=== PATIENT | male | born 1970 | race Caucasian/White ===

== ENCOUNTER → 2018-10-12 | Day surgery (SDC) | payer BC ==
[~2018-10-12] MED LIST: GLUCAGON FOR INJ 1 MG VIAL ONE; HYOSCYAMINE 0.125 MG TAB ONE; LIDOCAINE HCL 2% LOCAL INJ 5 ML SDV VIAL INJ ONE; MIDAZOLAM HCL 2 MG/2 ML VIAL ONE; PROPOFOL IV EMULSION 10 MG/ML 20 ML VIAL ONE
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
--- OUTSIDE RECORDS SUMMARY | 2018-10-12 08:25 | XMS REPORT | Encounter Summary ---
Author Organization Unknown Address [address] [place] [address] Phone [phone] Reason for Visit Medical Complaint Instructions 1. Acute tonsillitis tonsillitis: care instructions amoxicillin 500 mg capsule culture, respiratory 2. Sore throat symptom rapid strep group A, throat sore throat: care instructions Discussion Note Pt is aaox3 and in NAD; verbalizes understanding of all instructions and has no further questions at this time Plan of Care Patient Instructions Drink plenty of fluids, and eat soft, bland foods. Change toothbrush 24hrs after starting abx. Take medications as prescribed and discussed; follow up with your PCP within 2-3 days or sooner should symptoms worsen. Reminders Provider Appointments None recorded. Lab Rapid Strep Group a, Throat 04/02/2017 [facility] Culture, Respiratory 04/02/2017 [facility] Referral None recorded. Procedures None recorded. Surgeries None recorded. Imaging None recorded. Medications Name Start Date amoxicillin 500 mg capsule Take 1 capsule twice a day by oral route with meals for 10 days. diclofenac 3 % topical gel doxepin 5 % topical cream fluticasone 50 mcg/actuation nasal spray,suspension [place] 2 spray in each nostril by intranasal route once daily as needed lidocaine 5 % topical ointment lidocaine 5 % topical patch meloxicam 15 mg tablet meloxicam 7.5 mg tablet Ortho D 3,775 unit-1 mg capsule Tessalon Perle 100 mg capsule Take 1 capsule (100 mg) by oral route 3 times per day as needed for cough Zithromax Z-Schuyler 250 mg tablet Take 2 tablets (500 mg) by oral route once daily for 1 day then 1 tablet (250 mg) by oral route once daily for 4 days Medications Administered None recorded. Vitals Height Weight BMI Blood Pressure 6 ft 1 in 215 lbs 28.4 kg/m2 110/80 mm[Hg] Lab Results Date Name Specimen Result Interpretation Description Value Range Status Address Rapid Strep Group a, Throat Result negative [facility]: [address] [place] [address] Swab Location Left and Right tonsillar pillars [facility]: [facility] Allergies Code Code System Name Reaction Severity Status Onset NKDA Problems Name Status Onset Date Source Acute Sinusitis Active Encounter Acute Bronchitis Active Encounter Dyspnea Active Encounter Elevated Blood-pressure Reading without Diagnosis of Hypertension Active Encounter Procedures None recorded. Vaccine List None recorded. Social History Smoking Status Never Smoker Past Encounters 04/02/2017 Acute Tonsillitis; Sore Throat Symptom [facility]: [address] [place] [address], Ph. History of Present Illness Throat-Oral Complaint Reported By: Patient HPI: Location: throat. Quality: sore throat. Severity: mild. Duration: 21 days. Onset/Timing: sudden. Context: no sick contacts, no foreign travel, non-smoker. Associated Symptoms: no fever, no headache, no body aches, no sputum production, no shortness of breath, no wheezing, no change in number of pillows needed to sleep at night, no sweats, no significant weight gain, no significant weight loss, no morning cough, no vomiting, no diarrhea, no rash, no nausea, sore throat Review of Systems:ROS as noted in the HPI Review of Systems Basic Reported By: Patient Physical Exam Adult Basic, Adult Female Complete, Adult Male Complete, 14-21 Yr Females Reported By: Patient Constitutional: General Appearance: healthy-appearing, well-nourished, well-developed. Level of Distress: NAD. Ambulation: ambulating normally Psychiatric: Mental Status: active and alert. Orientation: to time, to place, to person Yso-Utic-Ltxww-Throat: Ears: no lesions on external ear, no outer ear tenderness, EACs clear, TMs clear. Hearing: no hearing loss. Nose: no lesions on external nose, nares patent, no septal deviation, nasal passages clear, no sinus tenderness, no nasal discharge. Lips, Teeth, and Gums: no mouth or lip ulcers, no bleeding gums, normal dentition. Oropharynx: moist mucous membranes, no exudates, erythema, tonsils enlarged 2+ Neck: Neck: FROM. Lymph Nodes: no supraclavicular LAD, anterior cervical LAD. Thyroid: no enlargement, non-tender Lungs: Respiratory effort: no dyspnea, no tachypnea. Auscultation: breath sounds normal, clear to auscultation, no wheezing, no rales/crackles, no rhonchi, no retractions Cardiovascular: Heart Auscultation: RRR, no murmurs. Pulses including femoral / pedal: normal throughout Neurologic: Gait and Station: normal gait, normal station. Reflexes: DTRs 2+ bilaterally throughout Skin: Inspection and palpation: no rash, no lesions, no ulcer, no abnormal nevi, no induration, no nodules, good turgor, no jaundice. Nails: normal
--- OUTSIDE RECORDS SUMMARY | 2018-10-12 08:26 | XMS REPORT ---
Author Author [facility] Address Unknown Phone Unavailable Care Team Providers Care Integrated Marketing Manager Name Role Phone Unavailable Unavailable Problems This patient has no known problems. Allergies, Adverse Reactions, Alerts This patient has no known allergies or adverse reactions. Medications This patient has no known medications. Encounters Start Date/Time End Date/Time Encounter Type Admission Type Attending Clinicians [facility] Facility Care Department Encounter ID 2018-09-06 15:05:00 2018-09-06 15:05:00 Outpatient [facility] [id number]
--- OUTSIDE RECORDS SUMMARY | 2018-10-12 08:26 | XMS REPORT | Summary of Care ---
Author Author ANURADHA GARCIA M.D. Organization Unknown Address [facility] Phone Unavailable Care Team Providers Care Entertainment Manager Name Role Phone ANURADHA GARCIA M.D. 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 Quantity: 30 ANURADHA GARCIA M.D. * Start : 25-Jul-2016 Active Allergies and Adverse Reactions Name Dates Details No Known Drug Allergies (Allergy) Status: Active Past Medical History Name Dates Details History of No significant past medical history Status: Resolved Procedures Procedure Dates Details History Of Prior Surgery Completed Immunization Name Dates Details Immunizations not documented Social History Name Dates Details - Status: Name Dates Details Never smoker Vital Signs Date Test Result Details No Known Vitals to report Results Date Description Value Details Results not documented Plan of Care Name Dates Details Planned Observations Planned Goals not documented Interventions Provided Plan* Completed at Today's Appointment: * Injection * Patient Education/Instructions: * Patient Education Provided * Reassurance * Counseling Provided. * MRI report reviewed and finding discussed with patient and family. * Physical Activity/ Sports Clearance:. * Weightbearing status:. * NSAIDS and ICE application for continued pain and swelling. * Apply Ice as Instructed * Orders: * Physical Therapy * Medications:. * Follow Up: * Return to the clinic in 4 week(s) or as needed. * Patient seen and examined by Physician. * Xray's reviewed with Physician Instructions Name Dates Details Instructions not documented Encounters Appointment; ANURADHA GARCIA M.D. Encounter Diagnosis: Problem not documented On: 15-Aug-2016 16:00
--- OUTSIDE RECORDS SUMMARY | 2018-10-12 08:26 | XMS REPORT ---
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
--- OUTSIDE RECORDS SUMMARY | 2018-10-12 08:26 | XMS REPORT | Summary of Care ---
Author Author [facility] Address Unknown Phone Unavailable Encounter HQ Encntr_chiara(FIN) [id number] Date(s): 08/24/16 - 09/22/16 [facility] Discharge Disposition: Home or Self Care Attending Physician: Arik Du MD Vital Signs No data available for this section Problem List No data available for this section Allergies, Adverse Reactions, Alerts No data available for this section Medications No data available for this section Results No data available for this section Immunizations No data available for this section Procedures No data available for this section Social History No data available for this section Assessment and Plan No data available for this section
--- OUTSIDE RECORDS SUMMARY | 2018-10-12 08:26 | XMS REPORT ---
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 Info Not Available Non Drug Allergy Problems Problem Type Condition Code Onset Dates Condition Status Assessment Left anterior shoulder pain M25.512 Active Assessment Disorder of left rotator cuff M67.912 Active Assessment BMI 28.0-28.9,adult Z68.28 Active Medications Medication Code System Code Instructions Start Date End Date Status Dosage [facility] [address]-59 15 MG Orally Once a day June 21, 2016 July 21, 2016 Active 1 tablet Vital Signs Date/Time: June 21, 2016 BMI 28.10 Index Weight 213 lbs Height 73 in Cardiac Monitoring Heart Rate 84 /min Blood Pressure Diastolic 80 mm Hg Blood Pressure Systolic 120 mm Hg Results No Known Results Summary Purpose [employer] Submission
--- OUTSIDE RECORDS SUMMARY | 2018-10-12 08:26 | XMS REPORT ---
Author Author Angela Stuart [facility] [employer] Address Unknown Phone Unavailable Care Team Providers Care Stage Electrician Helper Name Role Phone Angela Stuart CP Unavailable Allergies, Adverse Reactions, Alerts Substance Reaction Event Type N.K.D.A. Info Not Available Non Drug Allergy Encounters Encounter Location Date change RX [facility] July 16, 2013 HOME MAKER/PHYSICAL/FBW [facility] July 15, 2013 Problems Problem Type Condition ICD-9 Code Onset Dates Condition Status Assessment Genital warts 078.11 Active Assessment Screen for STD (sexually transmitted disease) V74.5 Active Assessment Routine general medical examination at health care facility V70.0 Active Medications Medication Code System Code Instructions Start Date End Date Status Dosage Podofilox MEDISPAN [address]-71 0.5 % Externally Twice a day for 3 days, then 4 days of no treatment, may repeat for up to 4 cycles July 15, 2013 Oct 13, 2013 Active 1 application to affected area Social History Social History Element Qualifiers Date Reported Flu Vaccine: . declines July 15, 2013 children . 1 July 15, 2013 Tobacco Use: . Are you a: never smoker July 15, 2013 Marital Status: . Johana July 15, 2013 Do you drink alcohol? . Status: Yes, Type: Beer, How often? 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 Metabolic Panel (14) Calcium, Serum(-8.7-10.2 mg/dL) 9.1 Protein, Total, Serum(-6.0-8.5 g/dL) 7.7 Carbon Dioxide, Total(-19-28 mmol/L) 23 Globulin, Total(-1.5-4.5 g/dL) 3.4 Glucose, Serum(-65-99 mg/dL) 91 Albumin, Serum(-3.5-5.5 g/dL) 4.3 Bilirubin, Total(-0.0-1.2 mg/dL) 0.4 A/G Ratio(-1.1-2.5 ) 1.3 AST (SGOT)(-0-40 IU/L) 16 eGFR If NonAfricn Am(- >59 mL/min/1.73) 105 Alkaline Phosphatase, S(-39-117 IU/L) 108 eGFR If Africn Am(- >59 mL/min/1.73) 122 BUN(-6-24 mg/dL) 9 ALT (SGPT)(-0-44 IU/L) 21 Creatinine, Serum(-0.76-1.27 mg/dL) 0.85 Potassium, Serum(-3.5-5.2 mmol/L) 4.9 Chloride, Serum(-97-108 mmol/L) 99 BUN/Creatinine Ratio(-9-20 ) 11 Sodium, Serum(-134-144 mmol/L) 138 Lipid Panel Cholesterol, Total(-100-199 mg/dL) 195 Triglycerides(-0-149 mg/dL) 146 HDL Cholesterol(->39 mg/dL) 42 VLDL Cholesterol Carlos(-5-40 mg/dL) 29 LDL Cholesterol Calc(-0-99 mg/dL) 124 HSV 1 and 2 IgM Abs, Indirect HSV 1 IgM Antibodies(-<1:10 titer) <1:10 HSV 2 IgM Antibodies(-<1:10 titer) <1:10 HSV Type 1-Specific Ab, IgG HSV 1 IgG, Type Spec(-0.00-0.90 index) 5.28 Urinalysis, Routine Urobilinogen,Semi-Qn(-0.0-1.9 mg/dL) 0.2 Bilirubin(-Negative ) Negative Urine-Color(-Yellow ) Yellow Appearance(-Clear ) Clear WBC Esterase(-Negative ) Negative Protein(-Negative/Trace ) Negative Glucose(-Negative ) Negative Ketones(-Negative ) Negative Specific [place](-1.005-1.030 ) 1.013 Occult Blood(-Negative ) Negative Microscopic Examination(- ) Comment pH(-5.0-7.5 ) 7.0 Nitrite, Urine(-Negative ) Negative Testosterone, Serum Testosterone, Serum(-348-1197 ng/dL) 401 Comment:(- ) Comment Chest 2 views- Xray EKG W/INTERP/ELECTR HSV Type 2-Specific Ab, IgG HSV 2 IgG, Type Spec(-0.00-0.90 index) <0.91 RPR RPR(-Non Reactive ) Non Reactive Prostate-Specific Ag, Serum Prostate Specific Ag, Serum(-0.0-4.0 ng/mL) 1.8 TSH TSH(-0.450-4.500 uIU/mL) 3.620 CBC With Differential/Platelet Hemoglobin(-12.6-17.7 g/dL) 15.8 RBC(-4.14-5.80 x10E6/uL) 5.59 MCV(-79-97 fL) 85 Hematocrit(-37.5-51.0 %) 47.5 MCHC(-31.5-35.7 g/dL) 33.3 MCH(-26.6-33.0 pg) 28.3 Platelets(-155-379 x10E3/uL) 307 RDW(-12.3-15.4 %) 13.2 Neutrophils(-40-74 %) 69 Monocytes(-4-12 %) 8 Lymphs(-14-46 %) 22 Basos(-0-3 %) 0 Eos(-0-5 %) 1 Immature Grans (Abs)(-0.0-0.1 x10E3/uL) 0.0 Lymphs (Absolute)(-0.7-3.1 x10E3/uL) 1.2 WBC(-3.4-10.8 x10E3/uL) 5.6 Immature Granulocytes(-0-2 %) 0 Neutrophils (Absolute)(-1.4-7.0 x10E3/uL) 3.8 Baso (Absolute)(-0.0-0.2 x10E3/uL) 0.0 Monocytes(Absolute)(-0.1-0.9 x10E3/uL) 0.4 Eos (Absolute)(-0.0-0.4 x10E3/uL) 0.1 Summary Purpose [employer]ClinicalWorks Submission
--- OUTSIDE RECORDS SUMMARY | 2018-10-12 08:26 | XMS REPORT ---
Author Author Eder Gil Organization [employer] Address Unknown Phone Unavailable Care Team Providers Care Software Quality Manager Name Role Phone Eder Gil CP Unavailable Allergies, Adverse Reactions, Alerts Substance Reaction Event Type N.K.D.A. Info Not Available Non Drug Allergy Problems Problem Type Condition Code Onset Dates Condition Status Assessment Encounter to discuss test results Z71.2 Active Problem Hyperlipidemia, unspecified hyperlipidemia type E78.5 Active Assessment Hyperlipidemia, unspecified hyperlipidemia type E78.5 Active Assessment SOB (shortness of breath) R06.02 Active Assessment Elevated LFTs R94.5 Active Medications No Known Medications Vital Signs Date/Time: September 10, 2018 BMI 29.15 Index Weight 221 lbs Height 73 in Cardiac Monitoring Heart Rate 82 /min Blood Pressure Diastolic 74 mm Hg Blood Pressure Systolic 118 mm Hg Results No Known Results Summary Purpose [employer] Submission
--- OUTSIDE RECORDS SUMMARY | 2018-10-12 08:26 | XMS REPORT ---
Author Author Angela Stuart Organization [employer] Address Unknown Phone Unavailable Care Team Providers Care Supervisor Lamp Shades Name Role Phone Angela Stuart Unavailable Encounters Encounter Location Date change RX [facility] July 16, 2013 Problems Problem Type Condition ICD-9 Code Onset Dates Condition Status Assessment Genital warts 078.11 Active Medications Medication Code System Code Instructions Start Date End Date Status Dosage Podofilox MEDISPAN [address]-94 0.5 % Externally Twice a day for 3 days, then 4 days of no treatment, may repeat for up to 4 cycles July 15, 2013 Oct 13, 2013 Inactive 1 application to affected area Podofilox MEDISPAN [address]-53 0.5 % Externally Twice a day for 3 days, then 4 days of no treatment, may repeat for up to 4 cycles July 16, 2013 Oct 14, 2013 Active 1 drop to affected area to warts Social History Social History Element Qualifiers Date Reported Flu Vaccine: . declines July 15, 2013 children . 1 July 15, 2013 Tobacco Use: . Are you a: never smoker July 15, 2013 Marital Status: . Johana July 15, 2013 Do you drink alcohol? . Status: Yes, Type: Beer, How often? 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
--- OUTSIDE RECORDS SUMMARY | 2018-10-12 08:26 | XMS REPORT ---
Author Author Marcos Laughlin Organization [employer] Address Unknown Phone Unavailable Care Team Providers Care Adult Education Instructor Name Role Phone Marcos Laughlin CP Unavailable Allergies, Adverse Reactions, Alerts Substance Reaction Event Type N.K.D.A. Info Not Available Non Drug Allergy Problems Problem Type Condition Code Onset Dates Condition Status Assessment Routine general medical examination at a health care facility Z00.00 Active Assessment SOB (shortness of breath) R06.02 Active Assessment BMI 29.0-29.9,adult Z68.29 Active Assessment Screening for prostate cancer Z12.5 Active Assessment Screen for colon cancer Z12.11 Active Medications No Known Medications Vital Signs Date/Time: September 04, 2018 BMI 29.29 Index Weight 222 lbs Height 73 in Cardiac Monitoring Heart Rate 61 /min Blood Pressure Diastolic 84 mm Hg Blood Pressure Systolic 124 mm Hg Results No Known Results Summary Purpose [employer] Submission
--- OUTSIDE RECORDS SUMMARY | 2018-10-12 08:26 | XMS REPORT | Summary of Care ---
Author Author [facility] Organization [facility] Address Unknown Phone Unavailable Encounter GALLO Reddy(RANJEET) [id number] Date(s): 09/06/18 - 09/06/18 [facility] [address] [place] [address]- [phone] Discharge Disposition: Home or Self Care Attending Physician: Marcos Laughlin Referring Physician: Marcos Laughlin Vital Signs No data available for this section Problem List No data available for this section Allergies, Adverse Reactions, Alerts No Known Medication Allergies Medications No data available for this section Results Most recent to 1 oldest [Reference Range]: eGFR 99 mL/min/1.73m2 1 *NA* (09/06/18 4:12 PM) POC Creatinine 0.9 mg/dL [0.5-1.4 mg/dL] (09/06/18 4:12 PM) 1Result Comment: The eGFR is calculated using the [...] from the National Kidney Disease Education Program ( NKDEP) which additionally recommends that when the eGFR is used in patients with extremes of body mass index for purposes of drug dosing, the eGFR should be mul tiplied by the estimated BMI. Immunizations Given and Recorded Vaccine Date Status Refusal Reason diphtheria/pertussis, acel/tetanus adult 01/28/17 Given Procedures No data available for this section Social History Social History Type Response Smoking Status Never smoker; Ready to change: No; Exposure to Tobacco Smoke None; Cigarette Smoking Last 365 Days No; Reg Smoking Cessation Counseling No entered on: 01/28/17 Assessment and Plan No data available for this section
--- OUTSIDE RECORDS SUMMARY | 2018-10-12 08:26 | XMS REPORT ---
Author Author Angela Stuart Organization [employer] Address Unknown Phone Unavailable Care Team Providers Care Lingo Cleaner Name Role Phone Angela Stuart CP Unavailable Allergies, Adverse Reactions, Alerts Substance Reaction Event Type N.K.D.A. Info Not Available Non Drug Allergy Encounters Encounter Location Date change RX [facility] July 16, 2013 [place]/PHYSICAL/FBW [facility] July 15, 2013 Follow-Up/BW [facility] July 25, 2013 Problems Problem Type Condition ICD-9 Code Onset Dates Condition Status Assessment Hyperlipidemia 272.4 Active Assessment Right elbow pain 719.42 Active Problem Hyperlipidemia 272.4 Active Assessment Right knee pain 719.46 Active Medications Medication Code System Code Instructions Start Date End Date Status Dosage Podofilox MEDISPAN [address]-70 0.5 % Externally Twice a day for 3 days, then 4 days of no treatment, may repeat for up to 4 cycles July 16, 2013 Oct 14, 2013 Active 1 drop to affected area to [facility] Social History Social History Element Qualifiers Date Reported Flu Vaccine: . declines July 25, 2013 children . 1 July 25, 2013 Tobacco Use: . Are you a: never smoker July 25, 2013 Marital Status: . Johana July 25, 2013 Do you drink alcohol? . Status: Yes, Type: Beer, How often? 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
--- OUTSIDE RECORDS SUMMARY | 2018-10-12 08:26 | XMS REPORT | Encounter Summary ---
Author Organization Unknown Address [address] [place] [address] Phone [phone] Reason for Visit Medical Complaint Instructions 1. Dyspnea on exertion shortness of breath: care instructions 2. Elevated blood pressure elevated blood pressure: care instructions Discussion Note: None recorded. Plan of Care Patient Instructions Elevated Blood Pressure Your blood pressure is elevated today, which is defined as anything at or above 120/80. If you have a history of high blood pressure that it treated with medication(s), it is important to continue taking your medication(s). Do not take decongestants which include Sudafed (Pseudoephedrine) and medications ending in D (for example Mucinex D). Use caution taking steroids and NSAIDs, including Ibuprofen and Naproxen Consider eating healthily, exercising (as approved by your primary care provider), and eating a low salt diet to improve blood pressure Monitor your blood pressure and follow up with your primary care provider Seek immediate medical attention (ER or 911) if severe headache, vision changes, numbness, tingling, dizziness, chest pain, chest pressure, shortness of breath, or any other concerning symptoms occur. If you have any need to contact [facility], including questions or concerns, please contact or Reminders Provider Appointments None recorded. Lab None recorded. Referral None recorded. Procedures None recorded. Surgeries None recorded. Imaging None recorded. Medications Name Start Date meloxicam 7.5 mg tablet Medications Administered None recorded. Vitals Height Weight BMI Blood Pressure 6 ft 1 in 210 lbs 27.7 kg/m2 (1) 132/90 mm[Hg] (2) 134/88 mm[Hg] Lab Results None recorded. Allergies Code Code System Name Reaction Severity Status Onset NKDA Problems None recorded. Procedures None recorded. Vaccine List Vaccine Type Tdap 01/11/2017 Social History Smoking Status Never Smoker Past Encounters 09/03/2018 Dyspnea on Exertion; Elevated Blood Pressure Annalise Diane, HEEL CEMENTER MACHINE-C: [address] [place] [address], Ph. History of Present Illness [id number]-[id number] Reported By: Patient HPI: Quality: ; clear throat. Duration: 6days. Modifying factors: OTC medication. Associated Symptoms: no wheezing, no sore throat, no vomiting, no diarrhea, no rash, no nausea, no fever, no muscle aches, no headache, shortness of breath Notes: patient last physical exam was 20 years ago. Review of Systems:ROS as noted in the HPI Review of Systems Basic Reported By: Patient Physical Exam Adult Basic, Adult Male Complete Reported By: Patient Constitutional: General Appearance: healthy-appearing, well-nourished, well-developed Pjz-Yqgi-Brpre-Throat: Ears: no lesions on external ear, no outer ear tenderness, EACs clear, TMs clear, TM mobility normal. Hearing: no hearing loss. Nose: no lesions on external nose, nares patent, no septal deviation, nasal passages clear, no sinus tenderness, no nasal discharge. Oropharynx: moist mucous membranes, no erythema, no exudates, tonsils not enlarged Neck: Lymph Nodes: no cervical LAD Lungs: Respiratory effort: no dyspnea, no tachypnea, no use of accessory muscles, no intercostal retractions. Auscultation: breath sounds normal, good air movement Cardiovascular: Heart Auscultation: RRR, no murmurs. Pulses including femoral / pedal: ; no edema to extremities
[2018-10-12 12:20] VITALS: BP 134/90
--- NOTE | 2018-10-12 12:46 | Operative Report ---
DATE OF PROCEDURE: 10/12/2018 SURGEON: Chris Little MD PROCEDURE: Colonoscopy and polypectomy. INDICATIONS FOR COLONOSCOPY: Colorectal cancer screening. MEDICATIONS: The patient was done under MAC, please see anesthesiologist's note. PROCEDURE IN DETAIL: With the patient in left lateral decubitus position, flexible fiberoptic Olympus colonoscope was inserted into the rectum with ease and advanced all the way to the cecum. The scope was then withdrawn slowly, mucosa overlying the cecum, ascending colon, transverse colon appeared to be within normal limits. Two minute polyps were removed per the cold biopsy forceps from the descending colon. Diverticular disease was noted in the distal descending and the sigmoid colon. One focal diverticulitis was noted in the sigmoid colon. One polyp was hot biopsied from the proximal rectum. The scope was then retroflexed into the distal rectum. Small internal hemorrhoids were noted, none of which was actively bleeding. The scope was then straightened out, it was subsequently withdrawn. The patient tolerated the procedure well. IMPRESSION: 1. Descending colon polyps x2, removed per cold biopsy forceps. 2. Diverticulosis. 3. Focal diverticulitis, sigmoid colon. 4. Rectal polyp, hot biopsied. 5. Internal hemorrhoids, none actively bleeding. PLAN: Follow up histology. Initiate high-fiber diet. Start Flagyl 500 mg one p.o. q.i.d. x10 days and Levaquin 500 mg one p.o. daily x10 days. The patient might benefit from a followup colonoscopy in 5 years. Chris Little MD [facility] [place] /[id number] cc: Annie Reyes DO
== END | disposition home or self-care (01) ==
LOC: OR 08:08
PROVIDERS: ATTEND Internal Medicine Gastroenterology
DX: Z12.11 Encounter for screening for malignant neoplasm of colon (principal); K63.5 Polyp of colon; K62.1 Rectal polyp; K57.32 Diverticulitis of large intestine without perforation or abscess without bleeding; K64.8 Other hemorrhoids; R06.02 Shortness of breath; R03.0 Elevated blood-pressure reading, without diagnosis of hypertension; Z01.810 Encounter for preprocedural cardiovascular examination; Z68.29 Body mass index [BMI] 29.0-29.9, adult
CPT/HCPCS: 45380; 45384; 93005; J2001; J2250; J2704; 45378